=== PATIENT | female | born 1990 | race Caucasian/White ===

== ENCOUNTER 2017-08-04 16:02 | Emergency (ER) | payer OTHER ==
[~2017-08-04] VITALS: Ht 160 cm; Wt 76.7 kg
[2017-08-04 16:04] VITALS: BP 142/85; PULSE 88; RESP 16; TEMP 97.7; O2SAT 100
[2017-08-04] MEDS ORDERED: ACETAMINOPHEN 500 MG CPLT PO ONE (16:45)
[2017-08-04] MEDS ORDERED: IBUP-232 PO (17:01)
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
[2017-08-04 17:21] VITALS: BP 107/65
== END 2017-08-04 17:33 | disposition home or self-care (01) ==
LOC: PHEFT 16:02
DX: S02.2XXA Fracture of nasal bones, initial encounter for closed fracture (principal); S06.9X9A Unspecified intracranial injury with loss of consciousness of unspecified duration, initial encounter; W20.8XXA Other cause of strike by thrown, projected or falling object, initial encounter; Y93.18 Activity, surfing, windsurfing and boogie boarding; Y92.832 Beach as the place of occurrence of the external cause
CPT/HCPCS: 70450; 70486